=== PATIENT | male | born 1940 | race Caucasian/White ===

== ENCOUNTER 2021-01-08 18:55 | Inpatient (IN) | payer MEDICARE ==
[~2021-01-08] VITALS: Ht 177.8 cm; Wt 84.0 kg
[2021-01-08] MEDS ORDERED: ASPIRIN81 MG PO (19:51)
[2021-01-08] MEDS ORDERED: METOPROL TAR25 MG PO (19:51)
--- NOTE | 2021-01-08 20:00 | NUR ---
PT TRIAGED IN TRIAGE ROOM SAV[facility] BECAUSE OF COVID. PT THEN TAKEN TO ROOM 1 FOR WORK UP. AT BEDSIDE.
[2021-01-08 21:00] LABS: HEMATOCRIT 47.5 % (39.0-50.0); IMMATURE GRANULOCYTES 0.1 % (0.0-5.0); MEAN CORPUSCULAR HGB 30.3 pG CALC (26.0-32.0); MEAN CORPUSCULAR HGB CONC 33.7 g/dL CAL (32.0-36.0); NEUT# 6.78 thou/uL (1.82-7.42); RED BLOOD COUNT 5.28 mill/uL (4.70-6.10); RED CELL DISTRI WIDTH 13.7 % (11.5-15.5)
[2021-01-08 21:11] LABS: ALBUMIN 4.4 g/dL (3.2-5.0); ALKALINE PHOSPHATASE 144 u/l (38-126); AMYLASE 79 u/l (30-110); ANION GAP 15 (6-22 (CALC)); BUN 16 mg/dL (8-23); BUN/CREATININE RATIO 18 (12-20 (CALC)); CARBON DIOXIDE 29 mmol/l (22-30); CHLORIDE 97 mmol/l (95-108); CREATININE 0.9 mg/dL (0.7-1.3); GFR > 60 ML/MIN (>=60 (CALC)); GFR FOR AFR.AMER. > 60 ML/MIN (>=60 (CALC)); LIPASE 38 u/l (23-300); POTASSIUM 3.9 mmol/l (3.5-5.1); SGOT/AST 30 u/l (19-48); SODIUM 136 mmol/l (137-146)
[2021-01-08 21:17] LABS: ACT PARTIAL THROMBO TIME 28.4 SECONDS (20.0-32.5); INTERNATIONAL NORMALIZED RATIO 1.1 RATIO (0.7-1.3); PROTHROMBIN TIME 11.2 SECONDS (9.0-12.5)
--- NOTE | 2021-01-08 21:48 | NUR ---
LABS DRAWN. IV STARTED. PT MEDICATED AND NOW TO CT VIA STRETCHER.
[2021-01-08 22:58] LABS: URINE BILIRUBIN - DIPSTICK NEGATIVE (NEGATIVE); URINE BLOOD DIPSTICK NEGATIVE (NEGATIVE); URINE COLOR YELLOW; URINE GLUCOSE - DIPSTICK NEGATIVE (NEGATIVE); URINE KETONE NEGATIVE (NEGATIVE); URINE LEUK ESTERASE NEGATIVE (NEGATIVE); URINE PROTEIN - DIPSTICK NEGATIVE (NEG-TRACE); URINE UROBILINOGEN - DIPSTICK 0.2 E.U./dL (0.2)
[2021-01-08 22:59] LABS: URINE NITRITE - DIPSTICK NEGATIVE (Negative)
--- NOTE | 2021-01-08 23:41 | NUR ---
OR HERE TO TAKE PT TO OR. NURSE ELIZABETH
--- NOTE | 2021-01-08 23:47 | NUR ---
TO OR VIA STRETCHE WITH ZOZYN INFUSING. TO THE HOUSE. PT A/O. NAD.
[2021-01-09] VITALS (9 sets, daily range): BP systolic 106–136; BP diastolic 59–72
--- NOTE | 2021-01-09 01:44 | NUR ---
PT TO ER ROOM 6 VIA STRETCHER FROM OR, PT ABLE TO STND AND AMBULATE FROM STRECTHER TO BED IN ROOM, TOLERATED WELL, DRESSINGS X4 TO ABD INTACT WITH NO DRNG NOTED, O2 AT 2L VIA NC FOR COMFORT PER VO , BILATERAL SCD'S IN USE, ORIENTE TO ROOM AND UNIT CALL NANETTE MAK, EDUCATED REGARDING HOLD IN ER AND FREQUENT VS, ALL QUESTIONS ANSWERED AND COMFORT MEASURES PROVIDED, WILL CONTINUE TO MONITOR.
--- NOTE | 2021-01-09 01:51 | NUR ---
PT ARRIVED FROM OR, AWAKE, ALERT, ORIENTED X 4. PT WAS PLACED ON O2 VIA NC AT 2LPM PER DR. MARIE. PT TRANSFERRED TO INPATIENT BED FOR RECOVERY. SCD'S PLACED ON PATIENT. PT STATES HE DOES NOT HAVE PAIN AT THIS TIME.
--- NOTE | 2021-01-09 05:03 | NUR ---
PT SLEEPING, IV INFUSING WELL, NO LEAK, REDNESS, INFILTRATE NOTICED. RESPIRATIONS EQUAL, UNLABORED.
--- NOTE | 2021-01-09 05:22 | NUR ---
PT STOOD AT BEDSIDE TO USE URINAL, JUICE GIVEN TO PATIENT AT PT REQUEST.
[2021-01-09 05:53] LABS: ANION GAP 10 (6-22 (CALC)); BUN 14 mg/dL (8-23); BUN/CREATININE RATIO 18 (12-20 (CALC)); CARBON DIOXIDE 27 mmol/l (22-30); CHLORIDE 104 mmol/l (95-108); CREATININE 0.8 mg/dL (0.7-1.3); GFR > 60 ML/MIN (>=60 (CALC)); GFR FOR AFR.AMER. > 60 ML/MIN (>=60 (CALC)); POTASSIUM 4.6 mmol/l (3.5-5.1); SODIUM 136 mmol/l (137-146)
[2021-01-09 06:20] LABS: HEMATOCRIT 40.6 % (39.0-50.0); HEMOGLOBIN 13.7 g/dl (14.0-18.0); MEAN CELL VOLUME 92.1 fL CALC (80.0-100.0); MEAN CORPUSCULAR HGB 31.1 pG CALC (26.0-32.0); MEAN CORPUSCULAR HGB CONC 33.7 g/dL CAL (32.0-36.0); RED BLOOD COUNT 4.41 mill/uL (4.70-6.10); RED CELL DISTRI WIDTH 13.7 % (11.5-15.5)
--- NOTE | 2021-01-09 06:21 | NUR ---
Reassessment of patient completed. No distress noted. APPEARS TO BE SLEEPING. RESPIRATIONS EVEN, UNLABORED.
--- NOTE | 2021-01-09 07:00 | NUR ---
REPORT FROM EILEEN MEDINA. PATIENT RESTING IN STRETCHER WITH EYES CLOSED. AWAKENS TO VERBAL STIMULI.
--- NOTE | 2021-01-09 08:00 | NUR ---
CALLED REGARDING PATIENT STATUS. INFOMRATION PROVIDED WITH USE OF PRIVACY CODE. PATIENT REMAINS RESTING IN STRETCHER WITH EYES CLOSED. MARK FITZPATRICK WITHIN REACH.
--- NOTE | 2021-01-09 09:00 | NUR ---
PATIENT REPORTS PAIN IS NOW 7/10. BOWEL SOUNDS HYPOACTIVE X 4 QUADRENTS. PATIENT DENIES ANY PASSING ON FLATUS
--- NOTE | 2021-01-09 10:05 | NUR ---
PT RESTING ON STRETCHER RECENTLY MEDICATED PO FOR C/O PAIN. SCD TO BLE. BS HYPOACTIVE. A&OX3 IV SITE HEALTHY. SKIN WARM AND DRY VSS.
--- NOTE | 2021-01-09 10:08 | NUR ---
REPORT TO EILEEN MATTHEWS. DR [place] AT BEDSIDE.
--- NOTE | 2021-01-09 11:15 | NUR ---
PT VOIDED APPROX 175 URINE IN URINAL WITHOUT ASSIST WHILE LYING IN BED.
--- NOTE | 2021-01-09 12:30 | NUR ---
PT REPORTS DECREASE IN PAIN SINCE RECEIVING PAIN MED EARLIER IN SHIFT.
--- NOTE | 2021-01-09 15:10 | NUR ---
PT note Patient is screened for PT intervention and it is felt that he would benefit from consult if medical agrees
[2021-01-09] MEDS ORDERED: LORTAB5 PO ×2 (15:25→15:32)
--- NOTE | 2021-01-09 18:12 | NUR ---
ARRIVED AND PATIENT INSTRUCTIONS GIVEN. PATIENT GETTING CHANGED FOR DISCHARGE
--- NOTE | 2021-01-09 18:20 | NUR ---
patient departed via wheelchair home dc instructions and prescription given and patient verbalized understanding of instructions.
--- NOTE | 2021-01-09 18:20 | NUR ---
Discharge instructions given. Patient verbalizes understanding of same. Discharged in stable condition via Wheelchair to Home with spouse. All belongings sent with pt.
--- NOTE | 2021-01-09 18:20 | NUR ---
Discharged to: Home Discharged via: Wheelchair Accompanied by: spouse D/C Condition: stable Diet: as tolerated Diet modification: Activity: As desired Home Health: NONE Follow up appointment: Special instructions: Medications: SEE MEDICATION RECONCILIATION FORM Prescriptions Given: Please notify your physician if you received either one of these vaccinations: Influenza Vaccine - Date: Pneumococcal Vaccine - Date: Patient Education Materials Provided: - Food and Drug Interaction Guide - Anticoagulation Education Booklet Contains the following information: 1. Compliance issues 2. Dietary advice 3. Follow up monitoring 4. Potential for adverse drug reactions and interactions - Smoking Cessation Booklet IF SYMPTOMS WORSEN, OR IF YOU HAVE ADDITIONAL QUESTIONS, PLEASE CONTACT YOUR PERSONAL PHYSICIAN OR SEEK EMERGENCY CARE. CALL YOUR PHYSICIAN IF YOU DO NOT GET RELIEF FROM THE PAIN MEDICATIONS PRESCRIBED, OR IF THE INTENSITY OF PAIN INCREASES, OR IF PAIN IS INTERFERING WITH ACTIVITY OR REST. IF YOU SMOKE, YOU NEED TO QUIT. IT IS GOOD FOR YOU AND EVERYONE AROUND YOU! Your physician and [facility] care about you and your health. The facts are clear. Smoking causes 1 out of 5 deaths in the [place] each year. It is the major preventable cause of emphysema, lung cancer, chronic bronchitis, heart disease and stroke. Quitting is one of the best things you can ever do for yourself and those you love. What better time to quit than now! You've already been cigarette free during your stay. Studies have shown that the first 48 hours of quitting are the toughest. Just a few of the benefits your body begins to experience are blood pressure returns to normal, the carbon monoxide level in your blood drops to normal, your chance of heart attack decreases, and your ability to smell and taste is enhanced. Here are some resources that you may find helpful: [place] [employer] [place] [employer] www.lungusa.org www.cancer.org [place] [employer] [place] [employer] of Health (Tobacco Prevention and Control Program) www.americanheart.org www.zac.[facility].fl.us Finally don't forget that your doctor may be able to help you. Whichever method you choose will be good for you. IF YOU HAVE A DIAGNOSIS OF CONGESTIVE HEART FAILURE, THERE ARE SEVERAL ADDITIONAL INSTRUCTIONS FOR YOU TO FOLLOW UPON DISCHARGE FROM THE HOSPITAL. Weigh yourself every day and if weight gain is greater than 2 pounds in a day, call your physican. If you experience worsening symptoms such as: Problems with breathing or shortness of breath Ankle/foot/leg swelling Unexplained weight gain greater than 2 pounds Call your physician or come to the emergency room. IF YOU HAVE A DIAGNOSIS OF STROKE, THERE ARE SEVERAL ADDITIONAL INSTRUCTIONS FOR YOU TO FOLLOW: A stroke occurs when something happens to interrupt the steady flow of blood to the brain, like a clot or a burst in a blood vessel. Brain cells quickly begin to . These INCREASE your chance of having a STROKE: * Smoking * High blood pressure * Diabetes * Obesity WARNING SIGNS OR SYMPTOMS: * Sudden weakness on one side of body. * Sudden confusion, trouble speaking or understanding. * Sudden trouble seeing. * Sudden trouble walking or loss of balance. * Sudden severe headache with no known cause. CALL At Any Sign of Stroke. You can beat a stroke. Disabilities can be prevented or limited, but you have must go to the Emergency Department immediately. Go in an Ambulance. Save Time. Be Seen Faster! If you were admitted to the hospital for a stroke After DISCHARGE you must: * Keep ALL follow up appointments. * Take your medications as ordered by your doctor. * Do not take any other drugs without checking with your doctor first. * Do not drive unless your doctor says it is okay. * Call your doctor with any questions or concerns. IF YOU WERE DISCHARGED ON COUMADIN/WARFARIN ANTICOAGULATION THERAPY, THERE ARE SEVERAL ADDITIONAL INSTRUCTIONS FOR YOU TO FOLLOW: Anticoagulants are medications that help prevent blood clots. They are often prescribed for people with certain heart, lung and blood vessel diseases to help prevent heart attacks and strokes. IMPORTANT Anticoagulation medications have been used for many years, but it can be difficult to manage. That's because many factors can affect how they work-including small changes in dose or dose timing, what you eat or drink, other medications and stress. You and your doctor must work closely together to manage this important medication. * Take your medicine EXACTLY as instructed by your doctor. * You must have your blood drawn for PT/INR to monitor your medication. * Do not take any new medications, vitamins or herbal supplements without asking your doctor first. FOODS: * Eat the same amount of foods that contain Vitamin K every day. * Avoid or limit alcohol. * Avoid major changes in diet or notify your doctor first. FOLLOW UP MONITORING: See your physician within one week to monitor your condition. You will need to have blood tests performed to monitor the medication. DRUG INTERACTIONS: * Diet and medications can affect the PT/INR level. * Do not take or discontinue any medication or over the counter medication unless your doctor okays. * Warfarin/Coumadin increases the risk of bleeding. CALL YOUR PHYSICIAN IF: If you notice any signs of increased bleedin. Excessive bruising. 2. Abnormal bleeding from nose or gums. 3. Deepstep, red or dark brown urine. 4. Minor bleeding or bright red blood from the bowel. CALL 911 OR GO TO THE HOSPITAL IF: 1. You have black tarry stools. 2. Sudden dizziness, faintness or weakness. 3. Cold or numbness in arm or leg. 4. Sudden chest pain. 5. Trouble talking or moving one side of body. 6. Coughing or vomiting bright red blood. 7. Severe headache or stomach pain. 8. Serious fall or hit to the head. Visit our website at [email or web address] You are going home today. Depending on your insurance coverage, you may be receiving a bill from the hospital for your hospital stay. If you have any question about your bill, please call the Business Office at [phone] or contact us at our web address: [email or web address]. If applicable, I have received my medication information as recommeded by my provider upon discharge. I have read and understand the above discharge instructions. Pt Signature: Date: Time: Witnessed by: Date: Time: Complete the record of communication to the next provider below. These discharge instructions, including discharge medications, is to be faxed to the next provider at the time of the patient's discharge. ____These instructions faxed to next Provider (Provider Name) on (Date) @ (Time) . ____The second provider involved in patient care following discharge has been faxed this information. These instructions faxed to (Provider-Home Health, Physical Therapy, Agency) on (Date) @ (Time) . OR ____Patient unable/unwilling to verbalize who the next provider of care will be, instructed patient to take these instructions to next appointment with healthcare provider.
== END 2021-01-09 18:20 | disposition home or self-care (01) | DRG 355 ==
LOC: ED 18:55 → ED-I 22:46 → ED 23:08 → ED-I 23:09
PROVIDERS: ADMIT Hospitalist; ATTEND Hospitalist
PROC: 0WQF4ZZ Repair Abdominal Wall, Percutaneous Endoscopic Approach (ICD-10-PCS; principal; 2021-01-09)
DX: K42.0 Umbilical hernia with obstruction, without gangrene (principal); I10 Essential (primary) hypertension; I25.10 Atherosclerotic heart disease of native coronary artery without angina pectoris; E78.5 Hyperlipidemia, unspecified; Z95.5 Presence of coronary angioplasty implant and graft; Z20.822 Contact with and (suspected) exposure to COVID-19
CPT/HCPCS: J0131; J2710; Q9967

== ENCOUNTER 2022-02-26 19:20 | Emergency (ER) | payer MEDICARE ==
[~2022-02-26] VITALS: Ht 177.8 cm; Wt 89.0 kg
[2022-02-26] VITALS (11 sets, daily range): BP systolic 110–134; BP diastolic 63–81
[~2022-02-26 19:20] MED LIST: ASPIRIN81 MG PO; LORTAB5 PO; METOPROL TAR25 MG PO
[2022-02-26] MEDS ORDERED: VOLTAREN75 MG PO (21:53)
[2022-02-26] MEDS ORDERED: TRAMADOL HCL50 MG PO (21:53)
== END 2022-02-26 22:00 | disposition home or self-care (01) ==
LOC: ED 19:20
DX: S46.912A Strain of unspecified muscle, fascia and tendon at shoulder and upper arm level, left arm, initial encounter (principal); S46.911A Strain of unspecified muscle, fascia and tendon at shoulder and upper arm level, right arm, initial encounter; I25.10 Atherosclerotic heart disease of native coronary artery without angina pectoris; W01.0XXA Fall on same level from slipping, tripping and stumbling without subsequent striking against object, initial encounter

== ENCOUNTER 2022-05-10 09:32 | Emergency (ER) | payer MEDICARE ==
[~2022-05-10] VITALS: Ht 177.8 cm; Wt 89.3 kg
[2022-05-10] VITALS (13 sets, daily range): BP systolic 105–135; BP diastolic 66–84
[~2022-05-10 09:32] MED LIST changes: +TRAMADOL HCL50 MG PO; +VOLTAREN75 MG PO
[2022-05-10 10:29] LABS: HEMATOCRIT 39.3 % (39.0-50.0); HEMOGLOBIN 13.7 g/dl (14.0-18.0); IMMATURE GRANULOCYTES 0.4 % (0.0-5.0); MEAN CELL VOLUME 88.1 fL CALC (80.0-100.0); MEAN CORPUSCULAR HGB 30.7 pG CALC (26.0-32.0); MEAN CORPUSCULAR HGB CONC 34.9 g/dL CAL (32.0-36.0); NEUT# 3.26 thou/uL (1.82-7.42); RED BLOOD COUNT 4.46 mill/uL (4.70-6.10); RED CELL DISTRI WIDTH 14.6 % (11.5-15.5)
[2022-05-10 10:36] LABS: ALBUMIN 3.6 g/dL (3.2-5.0); ALKALINE PHOSPHATASE 121 u/l (38-126); ANION GAP 12 (6-22 (CALC)); BUN 18 mg/dL (8-23); BUN/CREATININE RATIO 20 (12-20 (CALC)); CARBON DIOXIDE 23 mmol/l (22-30); CHLORIDE 109 mmol/l (95-108); CREATININE 0.9 mg/dL (0.7-1.3); GFR FOR AFR.AMER. > 60 ML/MIN (>=60 (CALC)); GFR OTHER RACES > 60 ML/MIN (>=60 (CALC)); POTASSIUM 3.8 mmol/l (3.5-5.1); SGOT/AST 30 u/l (19-48); SODIUM 140 mmol/l (137-146); TOTAL PROTEIN 6.5 g/dL (6.3-8.2)
[2022-05-10 10:45] LABS: BILIRUBIN, TOTAL 0.5 mg/dL (0.0-1.4)
== END 2022-05-10 12:43 | disposition short-term general hospital (02) ==
LOC: ED 09:32
PROVIDERS: Family Medicine
DX: S72.142A Displaced intertrochanteric fracture of left femur, initial encounter for closed fracture (principal); M25.512 Pain in left shoulder; I25.10 Atherosclerotic heart disease of native coronary artery without angina pectoris; W19.XXXA Unspecified fall, initial encounter; Y93.H2 Activity, gardening and landscaping; Y92.007 Garden or yard of unspecified non-institutional (private) residence as the place of occurrence of the external cause

== ENCOUNTER 2022-12-31 07:40 | Observation (INO) | payer MEDICARE ==
[~2022-12-31] VITALS: Ht 177.8 cm; Wt 92.6 kg
[2022-12-31] VITALS (26 sets, daily range): BP systolic 111–153; BP diastolic 65–91
--- NOTE | 2022-12-31 07:41 | NUR ---
STROKE ALERT VIA EMS. [facility] 0. [facility] 0. CALLED EMS AFTER PATIENT WOKE THIS MORNING AT 0600 FOR SYMPTOMS OF DYSPHASIA, AND IMBALANCE. PT HAS MEMORY LOSS RELATED TO EVENTS AT HOME. SPEECH CLEAR AND PATIENT A/OX3 UPON ARRIVAL TO HOSPITAL. IMMEDIATELY TO CT ON WEIGHTED STRETCHER.
[2022-12-31 08:05] LABS: GFR FOR AFR.AMER. > 60 ML/MIN (>=60 (CALC)); GFR OTHER RACES > 60 ML/MIN (>=60 (CALC))
[2022-12-31 08:10] LABS: BASO% 0.7 % (0-3); EOS% 8.3 % (0-8); HEMATOCRIT 45.7 % (39.0-50.0); HEMOGLOBIN 15.6 g/dl (14.0-18.0); IMMATURE GRANULOCYTES 0.5 % (0.0-5.0); LYMPH% 23.6 % (15-41); MEAN CELL VOLUME 89.4 fL CALC (80.0-100.0); MEAN CORPUSCULAR HGB 30.5 pG CALC (26.0-32.0); MEAN CORPUSCULAR HGB CONC 34.1 g/dL CAL (32.0-36.0); MONO% 11.6 % (2-13); NEUT# 3.32 thou/uL (1.82-7.42); NEUT% 55.3 % (42-76); RED BLOOD COUNT 5.11 mill/uL (4.70-6.10); RED CELL DISTRI WIDTH 13.9 % (11.5-15.5)
--- NOTE | 2022-12-31 08:30 | NUR ---
PT RETURNED TO ER, IN ROOM 10. AT BEDSIDE. NOTES IMPROVEMENT IN CONDITION, STATES SYMPTOMS SHE SAW AT HOME ARE NOT PRESENT.
[2022-12-31 08:39] LABS: ANION GAP 11 (6-22 (CALC)); BUN 14 mg/dL (8-23); BUN/CREATININE RATIO 14 (12-20 (CALC)); CARBON DIOXIDE 24 mmol/l (22-30); CHLORIDE 105 mmol/l (95-108); GFR FOR AFR.AMER. > 60 ML/MIN (>=60 (CALC)); GFR OTHER RACES > 60 ML/MIN (>=60 (CALC)); POTASSIUM 4.1 mmol/l (3.5-5.1); SGOT/AST 32 u/l (19-48); SODIUM 136 mmol/l (137-146); TOTAL PROTEIN 7.2 g/dL (6.3-8.2)
[2022-12-31 08:41] LABS: ACT PARTIAL THROMBO TIME 26.3 SECONDS (20.0-32.5)
[2022-12-31 08:42] LABS: ALKALINE PHOSPHATASE 186 u/l (38-126); BILIRUBIN, TOTAL 1.1 mg/dL (0.2-1.3)
--- NOTE | 2022-12-31 09:30 | NUR ---
AT BEDSIDE FOR SWALLOW EVAL. PATIENT HAD NO DIFFICULTY SWALLOWING. AT BEDSIDE. URINAL AND CALL LIGHT PROVIDED TO PATIENT. EDUCATED ON CONT WAIT TIME AND THEY STATED UNDERSTANDING. PATIENT PLACED ON 2 L NC OXYGEN AT HE BEGAN SATURATING AT 89% RA.
[2022-12-31 09:35] LABS: URINE BILIRUBIN - DIPSTICK Negative (NEGATIVE); URINE BLOOD DIPSTICK Negative (NEGATIVE); URINE COLOR Yellow; URINE GLUCOSE - DIPSTICK Negative (NEGATIVE); URINE KETONE Negative (NEGATIVE); URINE LEUK ESTERASE Negative (NEGATIVE); URINE NITRITE - DIPSTICK Negative (Negative); URINE PH 7.5 (4.5-8.0); URINE PROTEIN - DIPSTICK Negative (NEG-TRACE); URINE SPECIFIC GRAVITY 1.015; URINE UROBILINOGEN - DIPSTICK 0.2 E.U./dL (0.2)
--- NOTE | 2022-12-31 10:07 | NUR ---
PATIENT RESTING IN BED, EYES CLOSED. AT BEDSIDE. REVIEWED HOME MEDICATIONS WITH AND PATIENT.
--- NOTE | 2022-12-31 11:15 | NUR ---
PATIENT RESTING IN BED, REPOSITIONED PATIENT IN BED, URINAL AND CALL LIGHT AT BEDSIDE. IN ROOM. LIGHTS DIMMED FOR COMFORT.
--- NOTE | 2022-12-31 12:45 | NUR ---
PATIENT RESTING IN BED, STEPPING OUT TO GRAB FOOD, EDUCATED ON PLAN OF CARE TO ADMIT, THEY STATED UNDERSTANDING
--- NOTE | 2022-12-31 13:46 | NUR ---
PATIENT RESTING IN BED, LIGHTS DIMMED, EYES CLOSED. CALL LIGHT AT BEDSIDE
--- NOTE | 2022-12-31 14:28 | NUR ---
PATIENT RESTING IN BED, EYES CLOSED, LIGHTS DIM. PATIENT AWAITING ADMISSION. NO COMPLAINTS AT THIS TIME. OFFERED RESTROOM, BUT DECLINED.
--- NOTE | 2022-12-31 14:59 | NUR ---
[facility]
--- NOTE | 2022-12-31 15:05 | NUR ---
PT TO MED SURG VIA WHEEL CHAIR, BEDSIDE REPORT GIVEN TO JEN. PATIENT ON TELE 13. BELONGINGS IN BELONGINGS BAG GIVEN TO TO GO HOME. PT ABLE TO AMBULATE TO BED.
--- NOTE | 2022-12-31 15:40 | NUR ---
CONTACTED DERIC MORRISON IN REFERENCE TO A NUTRITION CONSULT AT 1540 HRS.
[2023-01-01 00:29] VITALS: BP 116/71
--- NOTE | 2023-01-01 02:50 | NUR ---
PT ALERT AND ORIENTED. SPEECH IS CLEAR. VSS. ON TELE SR 83. IV FLUIDS INFUSING ORDERED. CALL LIGHT IN REACH
[2023-01-01 04:39] VITALS: BP 118/73
[2023-01-01 05:46] LABS: ANION GAP 10 (6-22 (CALC)); BUN 14 mg/dL (8-23); BUN/CREATININE RATIO 15 (12-20 (CALC)); CARBON DIOXIDE 23 mmol/l (22-30); CHLORIDE 108 mmol/l (95-108); CREATININE 0.9 mg/dL (0.7-1.3); GFR FOR AFR.AMER. > 60 ML/MIN (>=60 (CALC)); GFR OTHER RACES > 60 ML/MIN (>=60 (CALC)); MAGNESIUM 1.9 mg/dL (1.6-2.3); POTASSIUM 4.1 mmol/l (3.5-5.1); SODIUM 136 mmol/l (137-146)
[2023-01-01 05:49] LABS: HEMATOCRIT 41.2 % (39.0-50.0); HEMOGLOBIN 13.9 g/dl (14.0-18.0); MEAN CELL VOLUME 90.4 fL CALC (80.0-100.0); MEAN CORPUSCULAR HGB 30.5 pG CALC (26.0-32.0); MEAN CORPUSCULAR HGB CONC 33.7 g/dL CAL (32.0-36.0); RED BLOOD COUNT 4.56 mill/uL (4.70-6.10); RED CELL DISTRI WIDTH 14.1 % (11.5-15.5)
--- NOTE | 2023-01-01 07:00 | NUR ---
RECEIVED BEDSIDE REPORT FROM EILEEN KELLY. PT IS RESTING IN BED WITH EYES CLOSED. ALL SAFETY MEASURES IN PLACE. VSS. PT FOR MRI TODAY.
[2023-01-01 07:33] VITALS: BP 117/77
[2023-01-01 09:08] LABS: CHOLESTEROL HDL RATIO 7.2 (<4.4 (CALC))
[2023-01-01 11:07] VITALS: BP 110/64
[2023-01-01 15:23] VITALS: BP 127/68
[2023-01-01] MEDS ORDERED: ATORVASTATIN CA40 MG PO (16:23)
[2023-01-01] MEDS ORDERED: PLAVIX75 MG PO (16:23)
--- NOTE | 2023-01-01 17:04 | NUR ---
Discharge instructions given. Patient verbalizes understanding of same. Discharged in stable condition via Ambulatory to Home with spouse. All belongings sent with pt.
== END 2023-01-01 17:05 | disposition home or self-care (01) ==
LOC: ED 07:40 → ED-I 12:50 → ED 14:26 → MS2 14:27
PROVIDERS: Family Medicine; Nurse Practitioner Family; Pediatrics; ADMIT Student in an Organized Health Care Education/Training Program; ATTEND Student in an Organized Health Care Education/Training Program
DX: G45.9 Transient cerebral ischemic attack, unspecified (principal); I10 Essential (primary) hypertension; I25.10 Atherosclerotic heart disease of native coronary artery without angina pectoris; Z86.73 Personal history of transient ischemic attack (TIA), and cerebral infarction without residual deficits; Z95.5 Presence of coronary angioplasty implant and graft; Z79.82 Long term (current) use of aspirin; T39.016A Underdosing of aspirin, initial encounter; Z91.128 Patient's intentional underdosing of medication regimen for other reason
CPT/HCPCS: Q9967